=== PATIENT | female | born 1955 | race Caucasian/White ===

== ENCOUNTER 2018-05-25 08:52 | Outpatient (CLI) | payer OTHER ==
[~2018-05-25 08:52] MED LIST: MECL-111 PO
[2018-05-25 09:34] LABS: ALANINE AMINOTRANSFERASE 38 U/L (12-78); ALBUMIN 3.8 G/DL (3.4-5.0); ALBUMIN/GLOBULIN RATIO 1.1 (1.1-1.5); ALKALINE PHOSPHATASE 63 IU/L (46-116); ANION GAP 10 (8-16); ASPARTATE AMINO TRANSFERASE 27 U/L (10-37); BILIRUBIN,TOTAL 0.3 MG/DL (0.1-1.0); BLOOD UREA NITROGEN 13 MG/DL (7-18); BUN/CREATININE RATIO 17.1 (6.6-38.0); CALCIUM 8.9 MG/DL (8.5-10.1); CHLORIDE 106 MMOL/L (99-107); CREATININE 0.76 MG/DL (0.40-0.90); GLUCOSE 96 MG/DL (70-104); POTASSIUM 3.9 MMOL/L (3.5-5.1); SODIUM 145 MMOL/L (135-145); TOTAL CARBON DIOXIDE 28.9 MMOL/L (24-32); TOTAL PROTEIN 7.3 G/DL (6.4-8.2); eGFR 77 ML/MIN
[2018-05-28 16:14] LABS: BASOPHILS % (AUTO) 0.4 % (0-1); EOSINOPHILS # (AUTO) 0.2 X10'3 (0-0.9); EOSINOPHILS % (AUTO) 2.8 % (0-6); HEMATOCRIT 38.3 % (35.0-45.0); HEMOGLOBIN 12.8 g/dl (12.0-16.0); LYMPHOCYTES # (AUTO) 2.1 X10'3 (1.1-4.8); LYMPHOCYTES % (AUTO) 32.8 % (21-51); MEAN CORPUSCULAR HGB CONC 33.5 % (33.0-36.5); MEAN CORPUSCULAR VOLUME 98.4 FL (78-98); MONOCYTES # (AUTO) 0.4 X10'3 (0-0.9); NEUTROPHILS # (AUTO) 3.6 X10'3 (1.8-7.7); PLATELET COUNT 192 X10'3 (140-440); RED BLOOD COUNT 3.89 X10'6 (4.20-5.60); RED CELL DISTRIBUTION WIDTH 13.3 % (11.5-14.5); WHITE BLOOD COUNT 6.4 X10'3 (4.5-11.0)
== END 2018-05-25 23:59 | disposition home or self-care (01) ==
LOC: LAB 08:52
PROVIDERS: ATTEND Dermatology
DX: I10 Essential (primary) hypertension (principal); Z79.899 Other long term (current) drug therapy
CPT/HCPCS: 36415; 80053; 85025

== ENCOUNTER 2018-06-08 13:38 | Outpatient (CLI) | payer OTHER | END 2018-06-08 23:59 | disposition home or self-care (01) | LOC: RAD 13:38 | PROVIDERS: ATTEND Internal Medicine | DX: M25.531 Pain in right wrist (principal); I10 Essential (primary) hypertension | CPT/HCPCS: 73100 ==

== ENCOUNTER 2018-11-27 08:45 | Outpatient (CLI) | payer OTHER ==
[~2018-11-27 08:45] MED LIST changes: +METO25TA6 PO
== END 2018-11-27 23:59 | disposition home or self-care (01) ==
LOC: CARD DIAG 08:45
PROVIDERS: ATTEND Internal Medicine Interventional Cardiology
DX: I34.0 Nonrheumatic mitral (valve) insufficiency (principal); I11.9 Hypertensive heart disease without heart failure
CPT/HCPCS: 93306

== ENCOUNTER 2019-12-16 14:49 | Outpatient (CLI) | payer BC ==
[~2019-12-16 14:49] MED LIST changes: -MECL-111 PO; +MECL-159 PO
== END 2019-12-16 23:59 | disposition home or self-care (01) ==
LOC: LAB 14:49
PROVIDERS: ATTEND Dermatology
DX: Z79.899 Other long term (current) drug therapy (principal)
CPT/HCPCS: 36415; 86480

== ENCOUNTER 2020-09-08 13:20 | Outpatient (CLI) | payer BC ==
[~2020-09-08 13:20] MED LIST changes: +LOP25T PO; -METO25TA6 PO
== END 2020-09-08 23:59 | disposition home or self-care (01) ==
LOC: RAD 13:20
PROVIDERS: ATTEND Internal Medicine
DX: M19.031 Primary osteoarthritis, right wrist (principal); M25.731 Osteophyte, right wrist; M43.12 Spondylolisthesis, cervical region; M47.812 Spondylosis without myelopathy or radiculopathy, cervical region
CPT/HCPCS: 72040; 73100

== ENCOUNTER 2021-08-16 06:51 | Day surgery (SDC) | payer BC ==
[2021-08-11 11:15] LABS: BASOPHILS % (AUTO) 1.1 % (0-1); EOSINOPHILS # (AUTO) 0.1 X10'3 (0-0.9); EOSINOPHILS % (AUTO) 3.7 % (0-6); LYMPHOCYTES # (AUTO) 1.3 X10'3 (1.1-4.8); MEAN CORPUSCULAR HEMOGLOBIN 33.5 PG (27.0-31.0); MEAN CORPUSCULAR HGB CONC 33.5 g/dL (33.0-36.5); MEAN CORPUSCULAR VOLUME 99.9 FL (78-98); MEAN PLATELET VOLUME 8.8 FL (7.4-10.4); MONOCYTES # (AUTO) 0.4 X10'3 (0-0.9); MONOCYTES % (AUTO) 11.2 % (2-12); NEUTROPHILS # (AUTO) 1.4 X10'3 (1.8-7.7); PRE OP HEMATOCRIT 38.8 % (35.0-45.0); PRE OP PLATELET COUNT 132 X10'3 (140-440); RED BLOOD COUNT 3.89 X10'6 (4.20-5.60); RED CELL DISTRIBUTION WIDTH 13.3 % (11.5-14.5)
[2021-08-11 11:29] LABS: ALBUMIN 3.9 G/DL (3.4-5.0); ALBUMIN/GLOBULIN RATIO 1.1 (1.1-1.5); ALKALINE PHOSPHATASE 63 IU/L (46-116); BLOOD UREA NITROGEN 16 MG/DL (7-18); BUN/CREATININE RATIO 21.6 (6.6-38.0); CALCIUM 9.7 MG/DL (8.5-10.1); CHLORIDE 103 MMOL/L (99-107); CREATININE 0.74 MG/DL (0.40-0.90); PRE OP ANION GAP 10 (8-16); PRE OP AST 87 U/L (10-37); PRE OP BILIRUB, TOTAL 0.6 MG/DL (0.0-1.0); PRE OP GLUCOSE 93 MG/DL (70-104); PRE OP POTASSIUM 4.2 MMOL/L (3.4-5.1); PRE OP SODIUM 140 MMOL/L (135-145); TOTAL CARBON DIOXIDE 27.2 MMOL/L (24-32); TOTAL PROTEIN 7.3 G/DL (6.4-8.2); eGFR 79 ML/MIN
[2021-08-11 11:35] LABS: PRE OP ALT 80 U/L (30-65)
[~2021-08-16] VITALS: Ht 165.1 cm; Wt 76.3 kg
[2021-08-16] VITALS (10 sets, daily range): BP systolic 152–180; BP diastolic 78–93
[~2021-08-16 06:51] MED LIST changes: +ASPI-612 PO; +BUPIVAcaine 0.5% inj/PF 30 ML ONE; +CELE-85 PO; +CHOL50004 PO; +FOLI1TAB27 PO; +IXEK80AU2 IM; -LOP25T PO; -MECL-159 PO; +METHYL PRO PO; +PANT40TA54 PO; +VITA400T10 PO; +cefazolin/dext.iso 2gm/50ml IV ONE; +famotidine 20mg tablet PO ONE; +ringers solution, lacted 1,000 ML IV SCH
[2021-08-16] MEDS ORDERED: morphine 4 MG/ML inj SYRINge IV PRN (09:50)
[2021-08-16] MEDS ORDERED: morphine 2 MG/ML inj. syringe IV PRN (09:50)
[2021-08-16] MEDS ORDERED: meperidine/PF 25mg/ml syringe IV PRN ×3 (09:50)
[2021-08-16] MEDS ORDERED: ringers solution, lacted 1,000 ML IV SCH (09:50)
[2021-08-16] MEDS ORDERED: ondansetron/PF 4mg/2ml inj IV PRN (09:50)
[2021-08-16] MEDS ORDERED: proCHLORperazine 10 MG/2 ml inj IV PRN (09:50)
[2021-08-16] MEDS ORDERED: LIDOcaine 0.5% (5mg/ml) 50ml vial ONE (11:01)
[2021-08-16] MEDS ORDERED: midazolam 1 mg/ML 2ml injection ONE ×2 (11:13→11:32)
[2021-08-16] MEDS ORDERED: FENTANYL CITRATE/PF 50 MCG/1 ML VIAL ONE (11:13)
[2021-08-16] MEDS ORDERED: propofol inj 20 ML IV ONE (12:01)
--- NOTE | 2021-08-16 12:04 | NUR ---
Received from OR via [facility], accompanied by Anesthesiologist DR CARRINGTON and report given by Anesthesiologist. PT DROWSY, DENIES PAIN. 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 Addendum: 08/16/21 at 1331 by Saba Sierra RN Amended: Links added.
--- NOTE | 2021-08-16 13:24 | NUR ---
PT UP AND ABLE TO AMBULATE SAFELY, D/C INSTRUCTIONS GIVEN AND GONE OVER W/PT WHO VERBALIZED UNDERSTANDING. PT D'CD TO HOME VIA W/C TO PRIVATE VEHICLE W/O INCIDENT. Addendum: 08/16/21 at 1334 by Saba Sierra RN Amended: Links added.
== END 2021-08-16 13:24 | disposition home or self-care (01) ==
LOC: PAS 06:51
PROVIDERS: ATTEND Orthopaedic Surgery Hand Surgery
DX: M25.531 Pain in right wrist (principal); M65.841 Other synovitis and tenosynovitis, right hand; K21.9 Gastro-esophageal reflux disease without esophagitis; M19.90 Unspecified osteoarthritis, unspecified site; Z98.890 Other specified postprocedural states; Z90.710 Acquired absence of both cervix and uterus; Z79.899 Other long term (current) drug therapy; Z20.822 Contact with and (suspected) exposure to COVID-19
CPT/HCPCS: 29846; 36415; 80053; 82948; 85025; 93005; J0690; J2250; J2704; J3010; J3490; J7030; J7120; S0020; U0003; U0005; Z7506; Z7512; A4215; A6449; A7000

== ENCOUNTER 2021-11-30 10:09 | Emergency (ER) | payer BC ==
[~2021-11-30] VITALS: Ht 165.1 cm; Wt 67.4 kg
[~2021-11-30 10:09] MED LIST changes: -BUPIVAcaine 0.5% inj/PF 30 ML ONE; -cefazolin/dext.iso 2gm/50ml IV ONE; -famotidine 20mg tablet PO ONE; -ringers solution, lacted 1,000 ML IV SCH
[2021-11-30 10:35] VITALS: BP 186/107
[2021-11-30] MEDS ORDERED: ipratropium/albuterol 3ml nebule NEB ONE (10:40)
[2021-11-30] MEDS ORDERED: methylPREDNISolone sod succ 125mg/2ml vial IV ONE (10:40)
[2021-11-30 11:10] LABS: BASOPHILS % (AUTO) 0.4 % (0-1); EOSINOPHILS # (AUTO) 0.1 X10'3 (0-0.9); EOSINOPHILS % (AUTO) 0.6 % (0-6); HEMATOCRIT 44.4 % (35.0-45.0); HEMOGLOBIN 15.2 g/dl (12.0-16.0); MEAN CORPUSCULAR HGB CONC 34.3 g/dL (33.0-36.5); MEAN CORPUSCULAR VOLUME 96.1 FL (78-98); MEAN PLATELET VOLUME 9.3 FL (7.4-10.4); MONOCYTES # (AUTO) 0.8 X10'3 (0-0.9); MONOCYTES % (AUTO) 7.4 % (2-12); NEUTROPHILS # (AUTO) 8.7 X10'3 (1.8-7.7); NEUTROPHILS % (AUTO) 82.6 % (42-75); PLATELET COUNT 171 X10'3 (140-440); RED BLOOD COUNT 4.62 X10'6 (4.20-5.60); RED CELL DISTRIBUTION WIDTH 14.1 % (11.5-14.5); WHITE BLOOD COUNT 10.5 X10'3 (4.5-11.0)
[2021-11-30 11:18] LABS: ALANINE AMINOTRANSFERASE 33 U/L (12-78); ALKALINE PHOSPHATASE 61 IU/L (46-116); ANION GAP 12 (8-16); ASPARTATE AMINO TRANSFERASE 26 U/L (10-37); BILIRUBIN,TOTAL 0.7 MG/DL (0.1-1.0); BLOOD UREA NITROGEN 11 MG/DL (7-18); BUN/CREATININE RATIO 14.5 (6.6-38.0); CALCIUM 9.6 MG/DL (8.5-10.1); CHLORIDE 109 MMOL/L (99-107); CREATININE 0.76 MG/DL (0.40-0.90); GLUCOSE 109 MG/DL (70-104); POTASSIUM 3.9 MMOL/L (3.5-5.1); SODIUM 144 MMOL/L (135-145); TOTAL CARBON DIOXIDE 22.9 MMOL/L (24-32); eGFR 76 ML/MIN
[2021-11-30] MEDS ORDERED: ALBU6.7H9 INH (11:37)
[2021-11-30] MEDS ORDERED: AMOX-117 PO (11:37)
[2021-11-30] MEDS ORDERED: BENZ-38 PO (11:37)
[2021-11-30] MEDS ORDERED: PRED20TA PO (11:37)
== END 2021-11-30 11:57 | disposition home or self-care (01) ==
LOC: EEVIPCON 10:10 → ER 10:10
DX: J20.9 Acute bronchitis, unspecified (principal); Z20.822 Contact with and (suspected) exposure to COVID-19; I10 Essential (primary) hypertension; K21.9 Gastro-esophageal reflux disease without esophagitis; Z79.899 Other long term (current) drug therapy; Z79.84 Long term (current) use of oral hypoglycemic drugs
CPT/HCPCS: 36415; 71045; 80053; 84145; 85025; 87635; 94640; 96374; 99284; C9803; J2930; 94760

== ENCOUNTER 2022-03-18 12:49 | Outpatient (CLI) | payer BC ==
[~2022-03-18 12:49] MED LIST changes: +ALBU6.7H14 INH
[2022-03-18 13:30] LABS: BASOPHILS % (AUTO) 0.1 % (0-1); EOSINOPHILS # (AUTO) 0.1 X10'3 (0-0.9); EOSINOPHILS % (AUTO) 3.2 % (0-6); HEMATOCRIT 38.2 % (35.0-45.0); HEMOGLOBIN 12.8 g/dl (12.0-16.0); LYMPHOCYTES # (AUTO) 1.4 X10'3 (1.1-4.8); MEAN CORPUSCULAR HEMOGLOBIN 32.9 PG (27.0-31.0); MEAN CORPUSCULAR HGB CONC 33.5 g/dL (33.0-36.5); MEAN CORPUSCULAR VOLUME 98.2 FL (78-98); MEAN PLATELET VOLUME 9.2 FL (7.4-10.4); MONOCYTES # (AUTO) 0.4 X10'3 (0-0.9); MONOCYTES % (AUTO) 10.5 % (2-12); NEUTROPHILS # (AUTO) 2.2 X10'3 (1.8-7.7); NEUTROPHILS % (AUTO) 53.2 % (42-75); PLATELET COUNT 208 X10'3 (140-440); RED BLOOD COUNT 3.89 X10'6 (4.20-5.60); RED CELL DISTRIBUTION WIDTH 12.9 % (11.5-14.5); WHITE BLOOD COUNT 4.2 X10'3 (4.5-11.0)
[2022-03-18 13:43] LABS: ALANINE AMINOTRANSFERASE 37 U/L (12-78); ALBUMIN 3.8 G/DL (3.4-5.0); ALBUMIN/GLOBULIN RATIO 1.2 (1.1-1.5); ALKALINE PHOSPHATASE 55 IU/L (46-116); ANION GAP 5 (8-16); ASPARTATE AMINO TRANSFERASE 30 U/L (10-37); BILIRUBIN,TOTAL 0.5 MG/DL (0.1-1.0); BLOOD UREA NITROGEN 8 MG/DL (7-18); BUN/CREATININE RATIO 10.7 (6.6-38.0); CALCIUM 9.2 MG/DL (8.5-10.1); CHLORIDE 109 MMOL/L (99-107); CREATININE 0.75 MG/DL (0.40-0.90); GLUCOSE 98 MG/DL (70-104); POTASSIUM 4.4 MMOL/L (3.5-5.1); SODIUM 144 MMOL/L (135-145); TOTAL CARBON DIOXIDE 29.6 MMOL/L (24-32); eGFR 77 ML/MIN
== END 2022-03-18 23:59 | disposition home or self-care (01) ==
LOC: LAB 12:49
PROVIDERS: ATTEND Dermatology
DX: Z79.899 Other long term (current) drug therapy (principal)
CPT/HCPCS: 36415; 80053; 85025; 86480

== ENCOUNTER 2022-03-31 12:06 | Outpatient (CLI) | payer BC | END 2022-03-31 23:59 | disposition home or self-care (01) | LOC: RAD 12:06 | PROVIDERS: ATTEND Dermatology | DX: Q25.46 Tortuous aortic arch (principal); A15.9 Respiratory tuberculosis unspecified; N64.89 Other specified disorders of breast | CPT/HCPCS: 71046 ==

== ENCOUNTER 2022-12-30 08:29 | Emergency (ER) | payer BC ==
[~2022-12-30] VITALS: Ht 165.1 cm; Wt 80.0 kg
[2022-12-30 08:39] VITALS: BP 183/108; PULSE 77; RESP 19; TEMP 98; O2SAT 97
[2022-12-30] MEDS ORDERED: ERYT1OIN6 RIGHTEYE (09:23)
[2022-12-30] MEDS ORDERED: DOXY-356 PO (09:23)
== END 2022-12-30 10:47 | disposition home or self-care (01) ==
LOC: ER 08:30
DX: H10.9 Unspecified conjunctivitis (principal); I10 Essential (primary) hypertension; K21.9 Gastro-esophageal reflux disease without esophagitis; L71.8 Other rosacea; R03.0 Elevated blood-pressure reading, without diagnosis of hypertension; Z79.1 Long term (current) use of non-steroidal anti-inflammatories (NSAID); Z79.2 Long term (current) use of antibiotics; Z79.899 Other long term (current) drug therapy
CPT/HCPCS: 99283

== ENCOUNTER 2023-03-20 11:37 | Outpatient (CLI) | payer BC ==
[~2023-03-20 11:37] MED LIST changes: +CELE-127 PO; -CELE-85 PO
== END 2023-03-20 23:59 | disposition home or self-care (01) ==
LOC: RAD 11:37
PROVIDERS: ATTEND Dermatology
DX: Z11.1 Encounter for screening for respiratory tuberculosis (principal)
CPT/HCPCS: 71045

== ENCOUNTER → 2023-03-31 | Outpatient (CLI) | payer BC | END | disposition home or self-care (01) | LOC: RAD 11:40 | PROVIDERS: ATTEND Physician Assistant | DX: M25.552 Pain in left hip (principal); I10 Essential (primary) hypertension | CPT/HCPCS: 73502 ==

== ENCOUNTER 2023-04-03 08:21 | Emergency (ER) | payer BC ==
[~2023-04-03] VITALS: Ht 165.1 cm; Wt 77.7 kg
[2023-04-03 08:39] VITALS: BP 156/78; PULSE 80; RESP 16; O2SAT 97
[2023-04-03] MEDS ORDERED: PRED20TA PO (09:25)
[2023-04-03] MEDS ORDERED: METH-798 PO (09:25)
--- NOTE | 2023-04-03 09:40 | NUR ---
[employer] GENERAL ASSESSMENT REVIEWED BY MILA RN; APPROVED
--- NOTE | 2023-04-03 09:50 | NUR ---
provider head to toe assessment prior to nursing assesment rap assessment done after assessing patient. Pt stable upon Dc
[2023-04-03 09:51] VITALS: TEMP 97.7
== END 2023-04-03 09:51 | disposition home or self-care (01) ==
LOC: ER 08:21
DX: M54.32 Sciatica, left side (principal); K21.9 Gastro-esophageal reflux disease without esophagitis; I10 Essential (primary) hypertension; G89.29 Other chronic pain; M54.9 Dorsalgia, unspecified; Z79.899 Other long term (current) drug therapy
CPT/HCPCS: 99283